=== PATIENT | female | born 1965 | race Caucasian/White ===

== ENCOUNTER 2016-06-25 07:34 | Emergency (ER) | payer MEDICARE, OTHER ==
[~2016-06-25] VITALS: Ht 152.4 cm; Wt 91.0 kg
[~2016-06-25 07:34] MED LIST: CELE200; IBUP-238; LORA-392; TOPR25TA2
[2016-06-25 07:36] VITALS: BP 172/84; PULSE 96; RESP 20; TEMP 98.8; O2SAT 96
--- NOTE | 2016-06-25 08:41 | PD ---
HPI Chief Complaint: Flank/Kidney Pain Time Seen by Provider: 08:23 Travel History International Travel<30 days: No Contact w/Intl Traveler<30days: No Traveled to known affect area: No History of Present Illness HPI 51yo F with PMH of IDDM, peripheral neuropathy presents to the ED with c/o bilateral lower back pain for 3 days. Also with nausea and vomiting today. States her neuropathy in bilateral legs are worst today and has pain with even light touch. Pt has wheelchair and uses it when her pain gets bad. Denies any fever, chest pain, sob, urinary complaints, fall or trauma. Back pain is constant, nonradiating, bilateral lower back and worst with movement. Pain in legs are different and feels like her usual neuropathy for which she took lyrica today. Pt is suppose to be on lantus and novolog and has not taken her insulin for 1 week because she ran out. Blood glucose is in the 400s in the ED. PFSH Past Medical History Cardiovascular Problems: Yes ([place]) Chemotherapy: Yes (RIGHT BREAST/ OVARIES [place]) Cerebrovascular Accident: Yes (3 CVA) Diabetes: Yes Patient Takes Glucophage: No ?: Not Past Surgical History Other Surgery: Yes (LUMPECTOMY R BREAST) Social History Alcohol Use: No Tobacco Use: Yes (PACK PER DAY ) Substance Use: No Allergies-Medications (Allergen,Severity, Reaction): Coded Allergies: Hydrocodone (Verified Allergy, Severe, tongue swelling, 10/01/06) Penicillin (Verified Allergy, Severe, HIVES, SWELLING, 10/01/06) Reported Meds & Prescriptions Reported Meds & Active Scripts Active Acetaminophen Extra Strength (Acetaminophen) 500 Mg Tab 500 Mg PO Q6H PRN Review of Systems Except as stated in HPI: all other systems reviewed are Neg Physical Exam Narrative GENERAL: 51yo F in moderate distress. SKIN: Focused skin assessment warm/dry. HEAD: Atraumatic. Normocephalic. EYES: Pupils equal and round. No scleral icterus. No injection or drainage. ENT: No nasal bleeding or discharge. Mucous membranes pink and moist. NECK: Trachea midline. No JVD. CARDIOVASCULAR: Regular rate and rhythm. No murmur appreciated. RESPIRATORY: No accessory muscle use. Clear to auscultation. Breath sounds equal bilaterally. GASTROINTESTINAL: Abdomen soft, non-tender, nondistended. No rebound tenderness or guarding. MUSCULOSKELETAL: +TTP bilateral lumbar spine. NEUROLOGICAL: Awake and alert. No obvious cranial nerve deficits. Motor grossly within normal limits. Normal speech. PSYCHIATRIC: Appropriate mood and affect; insight and judgment normal. Data Data Last Documented VS Vital Signs Date Time Temp Pulse Resp B/P Pulse Ox O2 Delivery O2 Flow Rate FiO2 06/25/16 14:26 64 22 125/87 95 Room Air 06/25/16 07:36 98.8 Orders Electrocardiogram (06/25/16 08:31) Diet Npo (06/25/16 Breakfast) Complete Blood Count With Diff (06/25/16 08:31) Comprehensive Metabolic Panel (06/25/16 08:31) Magnesium (Mg) (06/25/16 08:31) Phosphorus (Po4) (06/25/16 08:31) Beta Hydroxybutyrate (Acetone) (06/25/16 08:31) Sodium Chlor 0.9% 1000 Ml Inj (Ns 1000 M (06/25/16 08:31) Blood Gas Venous (Vbg) (06/25/16 08:31) Ketorolac Inj (Toradol Inj) (06/25/16 08:45) Morphine Inj (Morphine Inj) (06/25/16 10:15) Insulin Human Regular Inj (Novolin R Inj (06/25/16 10:15) Urinalysis - C+S If Indicated (06/25/16 10:19) Blood Glucose (06/25/16 11:18) Labs Laboratory Tests Test 06/25/16 06/25/16 06/25/16 08:40 08:45 13:05 White Blood Count 10.7 TH/MM3 Red Blood Count 5.72 MIL/MM3 Hemoglobin 16.9 GM/DL Hematocrit 48.8 % Mean Corpuscular Volume 85.2 FL Mean Corpuscular Hemoglobin 29.5 PG Mean Corpuscular Hemoglobin 34.6 % Concent Red Cell Distribution Width 13.3 % Platelet Count 161 TH/MM3 Mean Platelet Volume 9.1 FL Neutrophils (%) (Auto) 64.3 % Lymphocytes (%) (Auto) 29.1 % Monocytes (%) (Auto) 4.2 % Eosinophils (%) (Auto) 1.3 % Basophils (%) (Auto) 1.1 % Neutrophils # (Auto) 6.9 TH/MM3 Lymphocytes # (Auto) 3.1 TH/MM3 Monocytes # (Auto) 0.5 TH/MM3 Eosinophils # (Auto) 0.1 TH/MM3 Basophils # (Auto) 0.1 TH/MM3 CBC Comment DIFF FINAL Differential Comment Sodium Level 133 MEQ/L Potassium Level 4.1 MEQ/L Chloride Level 98 MEQ/L Carbon Dioxide Level 25.4 MEQ/L Anion Gap 10 MEQ/L Blood Urea Nitrogen 7 MG/DL Creatinine 0.80 MG/DL Estimat Glomerular Filtration 76 ML/MIN Rate Random Glucose 465 MG/DL Calcium Level 9.1 MG/DL Phosphorus Level 3.1 MG/DL Magnesium Level 1.9 MG/DL Total Bilirubin 0.8 MG/DL Aspartate Amino Transf 25 U/L (AST/SGOT) Alanine Aminotransferase 34 U/L (ALT/SGPT) Alkaline Phosphatase 132 U/L Total Protein 7.8 GM/DL Albumin 3.6 GM/DL B-Hydroxybutyrate 0.14 MMOL/L Blood Gas Puncture Site RA Blood Gas Patient Temperature 98.6 Venous Blood pH 7.37 Venous Blood Partial Pressure 48 mmHg CO2 Venous Blood Partial Pressure 35 mmHg O2 Venous Blood HCO3 27 mmol/L Venous Blood Oxygen Saturation 67 % Venous Blood Oxygen Content 14.6 Vol % Venous Blood Base Excess 2.4 mmol/L Oxygen Delivery Device RA Blood Gas Inspired Oxygen 21 % Urine Color YELLOW Urine Turbidity CLEAR Urine pH 5.5 Urine Specific [place] 1.018 Urine Protein NEG mg/dL Urine Glucose (UA) 1000 mg/dL Urine Ketones NEG mg/dL Urine Occult Blood NEG Urine Nitrite NEG Urine Bilirubin NEG Urine Urobilinogen LESS THAN 2.0 MG/DL Urine Leukocyte Esterase NEG Urine WBC LESS THAN 1 /hpf Urine Squamous Epithelial 2 /hpf Cells Urine Mucus FEW /lpf Microscopic Urinalysis Comment CULT NOT INDICATED MDM Medical Decision Making Medical Screen Exam Complete: Yes Emergency Medical Condition: Yes Interpretation(s) EKG: NSR 72bpm. Normal axis. TWI aVF, III. Q wave III. Laboratory Tests Test 06/25/16 06/25/16 06/25/16 08:40 08:45 13:05 White Blood Count 10.7 TH/MM3 (4.0-11.0) Red Blood Count 5.72 MIL/MM3 (4.00-5.30) Hemoglobin 16.9 GM/DL (11.6-15.3) Hematocrit 48.8 % (35.0-46.0) Mean Corpuscular Volume 85.2 FL (80.0-100.0) Mean Corpuscular Hemoglobin 29.5 PG (27.0-34.0) Mean Corpuscular Hemoglobin 34.6 % Concent (32.0-36.0) Red Cell Distribution Width 13.3 % (11.6-17.2) Platelet Count 161 TH/MM3 (150-450) Mean Platelet Volume 9.1 FL (7.0-11.0) Neutrophils (%) (Auto) 64.3 % (16.0-70.0) Lymphocytes (%) (Auto) 29.1 % (9.0-44.0) Monocytes (%) (Auto) 4.2 % (0.0-8.0) Eosinophils (%) (Auto) 1.3 % (0.0-4.0) Basophils (%) (Auto) 1.1 % (0.0-2.0) Neutrophils # (Auto) 6.9 TH/MM3 (1.8-7.7) Lymphocytes # (Auto) 3.1 TH/MM3 (1.0-4.8) Monocytes # (Auto) 0.5 TH/MM3 (0-0.9) Eosinophils # (Auto) 0.1 TH/MM3 (0-0.4) Basophils # (Auto) 0.1 TH/MM3 (0-0.2) CBC Comment DIFF FINAL Differential Comment Sodium Level 133 MEQ/L (136-145) Potassium Level 4.1 MEQ/L (3.5-5.1) Chloride Level 98 MEQ/L (98-107) Carbon Dioxide Level 25.4 MEQ/L (21.0-32.0) Anion Gap 10 MEQ/L (5-15) Blood Urea Nitrogen 7 MG/DL (7-18) Creatinine 0.80 MG/DL (0.50-1.00) Estimat Glomerular Filtration 76 ML/MIN (>89) Rate Random Glucose 465 MG/DL (74-106) Calcium Level 9.1 MG/DL (8.5-10.1) Phosphorus Level 3.1 MG/DL (2.5-4.9) Magnesium Level 1.9 MG/DL (1.5-2.5) Total Bilirubin 0.8 MG/DL (0.2-1.0) Aspartate Amino Transf 25 U/L (15-37) (AST/SGOT) Alanine Aminotransferase 34 U/L (10-53) (ALT/SGPT) Alkaline Phosphatase 132 U/L (45-117) Total Protein 7.8 GM/DL (6.4-8.2) Albumin 3.6 GM/DL (3.4-5.0) B-Hydroxybutyrate 0.14 MMOL/L (0.00-0.39) Blood Gas Puncture Site RA Blood Gas Patient Temperature 98.6 Venous Blood pH 7.37 (7.360-7.400) Venous Blood Partial Pressure 48 mmHg (44-48) CO2 Venous Blood Partial Pressure 35 mmHg (35-40) O2 Venous Blood HCO3 27 mmol/L (22-26) Venous Blood Oxygen Saturation 67 % (70-76) Venous Blood Oxygen Content 14.6 Vol % (9.0-17.0) Venous Blood Base Excess 2.4 mmol/L (-2-2) Oxygen Delivery Device RA Blood Gas Inspired Oxygen 21 % Urine Color YELLOW (YELLW/STRAW) Urine Turbidity CLEAR (CLEAR) Urine pH 5.5 (5.0-8.5) Urine Specific [place] 1.018 (1.002-1.035) Urine Protein NEG mg/dL (NEG-TRACE) Urine Glucose (UA) 1000 mg/dL (NEG) Urine Ketones NEG mg/dL (NEG) Urine Occult Blood NEG (NEG) Urine Nitrite NEG (NEG) Urine Bilirubin NEG (NEG) Urine Urobilinogen LESS THAN 2.0 MG/DL (LESS THAN 2.0) Urine Leukocyte Esterase NEG (NEG) Urine WBC LESS THAN 1 /hpf (0-5) Urine Squamous Epithelial 2 /hpf (0-5) Cells Urine Mucus FEW /lpf (OCC) Microscopic Urinalysis Comment CULT NOT INDICATED Differential Diagnosis DKA vs. musculoskeletal back pain vs. chronic back pain vs. nephrolithiasis Narrative Course 51yo F with lower back pain that is consistent with musculoskeletal pain. Pt has no urinary complaints, new neurologic deficits or trauma. Pt has not been taking her insulin because she ran out. She has medicaid and needs to follow up with a primary care physician. Labs reviewed, no leukocytosis. H/H elevated likely dehydration. Pt given NS IVF x2. Glucose is elevated at 465. No increased anion gap. CO2 normal pH normal at 7.37. b-hyoxybutyrate not elevated. Pt is not in DKA but has uncontrolled diabetes secondary to noncompliance with medication. Pt given toradol for pain but did not help so morphine 4mg IV given. Pt reevaluated after morphine and pain has resolved. UA showed no leukocyte or nitrite. Pt given regular insulin 10 units. Recheck glucose was 218. Pt states she takes lantus 15 units so will give her a prescription for it. Pt has insurance so instructed pt to follow up with primary care physician tomorrow. Instructed pt to return to the ED if symptoms worsen. Diagnosis Primary Impression: Hyperglycemia Additional Impression: Musculoskeletal pain Patient Instructions: General Instructions Departure Forms: Tests/Procedures Additional Instructions: Please follow up with PMD tomorrow for your diabetes. Please return to the ED if symptoms worsen. Med/Other Pt SpecificInfo: Prescription(s) given, No Change to Meds Scripts Insulin Glargine Inj (Lantus Inj)1,000 Unit/10 Ml Vial15 Units SQ HS 14 Days Ref 0 Prov:Jenny Greenwood DO 06/25/16 Acetaminophen (Acetaminophen Extra Strength)500 Mg Tto864 Mg PO Q6H PRN (PAIN SCALE 1 TO 4) #20 TAB Ref 0 Prov:Jenny Greenwood DO 06/25/16 Disposition: 01 DISCHARGE HOME Condition: Stable Jenny Greenwood DO Jun 25, 2016 08:41
[2016-06-25] MEDS: SODIUM CHLOR 0.9% 1000 ML INJ 1,000 ML IV SCH ×2 (08:44→10:46)
[2016-06-25] MEDS ORDERED: KETOROLAC TROMETHAMINE 30 MG/ML (IVP) VIAL IV PUSH ONE (08:45)
[2016-06-25 08:53] LABS: BLOOD GAS VENOUS BASE EXCESS 2.4 mmol/L (-2-2); BLOOD GAS VENOUS HCO3 27 mmol/L (22-26); BLOOD GAS VENOUS O2 CONTENT 14.6 Vol % (9.0-17.0); BLOOD GAS VENOUS O2 HGB SAT 67 % (70-76); BLOOD GAS VENOUS PCO2 48 mmHg (44-48); BLOOD GAS VENOUS PO2 35 mmHg (35-40); BLOOD GAS VENOUS pH 7.37 (7.360-7.400); TEMP CORR TO 98.6
[2016-06-25 08:54] LABS: CRITICAL VALUE NO; DRAW SITE RA; FIO2 21 %; OXYGEN DEVICE RA; STAT YES
[2016-06-25 09:11] LABS: AUTOMATED NEUTROPHIL # 6.9 TH/MM3 (1.8-7.7); BASOPHIL # 0.1 TH/MM3 (0-0.2); BASOPHIL % 1.1 % (0.0-2.0); EOSINOPHIL # 0.1 TH/MM3 (0-0.4); EOSINOPHIL % 1.3 % (0.0-4.0); HEMATOCRIT 48.8 % (35.0-46.0); HEMO FLAGS DIFF FINAL; LYMPH % 29.1 % (9.0-44.0); LYMPHOCYTE # 3.1 TH/MM3 (1.0-4.8); MEAN CELL VOLUME 85.2 FL (80.0-100.0); MEAN CORPUSCULAR HEMOGLOBIN 29.5 PG (27.0-34.0); MEAN CORPUSCULAR HGB CONC 34.6 % (32.0-36.0); MONO % 4.2 % (0.0-8.0); NEUT % 64.3 % (16.0-70.0); PLATELET COUNT 161 TH/MM3 (150-450); RED BLOOD COUNT 5.72 MIL/MM3 (4.00-5.30); RED CELL DISTRIBUTION WIDTH 13.3 % (11.6-17.2); WHITE BLOOD COUNT 10.7 TH/MM3 (4.0-11.0)
[2016-06-25 09:34] LABS: ALKALINE PHOSPHATASE 132 U/L (45-117); ALT (GPT) 34 U/L (10-53); ANION GAP 10 MEQ/L (5-15); AST (GOT) 25 U/L (15-37); BETA-HYDROXYBUTYRATE 0.14 MMOL/L (0.00-0.39); BICARBONATE 25.4 MEQ/L (21.0-32.0); BLOOD UREA NITROGEN 7 MG/DL (7-18); CHLORIDE 98 MEQ/L (98-107); GLOMERULAR FILTRATION RATE 76 ML/MIN (>89); MAGNESIUM 1.9 MG/DL (1.5-2.5); POTASSIUM 4.1 MEQ/L (3.5-5.1); SODIUM (NA) 133 MEQ/L (136-145); TOTAL BILIRUBIN ADULT 0.8 MG/DL (0.2-1.0)
[2016-06-25] MEDS ORDERED: MORPHINE SULFATE 4 MG/ML INJ IV PUSH ONE (10:15)
[2016-06-25] MEDS ORDERED: INSULIN HUMAN REGULAR 1,000 UNITS/10 ML VIAL SQ ONE (10:15)
[2016-06-25 13:32] LABS: BLOOD, URINE NEG (NEG); GLUCOSE,URINE 1000 mg/dL (NEG); KETONE, URINE NEG (NEG); MUCUS URINE FEW /lpf (OCC); NITRITE,URINE NEG (NEG); PH, URINE 5.5 (5.0-8.5); SQUAMOUS EPITHELIAL CELL URINE 2 /hpf (0-5); URINE COLOR YELLOW (YELLW/STRAW)
[2016-06-25 13:44] LABS: COMMENT (UR) CULT NOT INDICATED; CULTURE IF INDICATED CULT NOT INDICATED
[2016-06-25 14:26] VITALS: BP 125/87; PULSE 64; RESP 22; O2SAT 95
[2016-06-25] MEDS ORDERED: ACET500T36 PO (14:45)
[2016-06-25] MEDS ORDERED: LANTUS2P SQ (14:51)
--- NOTE | 2016-06-25 22:03 | EKG ---
Date Performed: 06/25/2016 Time Performed: 08:35:22 PTAGE: 51 years EKG: Sinus rhythm WITH SINUS ARRHYTHMIA Nonspecific ST and T wave abnormalities PREVIOUS TRACING : 09/24/2006 11.55 Compared to prior tracing no significant change DOCTOR: Iván Sow Interpretating Date/Time 06/25/2016 22:01:11
== END 2016-06-25 15:41 | disposition home or self-care (01) ==
LOC: NEPE 07:34
DX: E11.65 Type 2 diabetes mellitus with hyperglycemia (principal); M79.1 Myalgia; F17.210 Nicotine dependence, cigarettes, uncomplicated; Z79.4 Long term (current) use of insulin; Z91.14 Patient's other noncompliance with medication regimen
CPT/HCPCS: 80053; 81001; 82010; 82805; 83735; 84100; 85025; 93005; 96361; 96372; 96374; 96375; 99283; J1815; J1885; J2270; J7030

== ENCOUNTER 2016-07-11 15:50 | Inpatient (IN) | payer MEDICARE, OTHER ==
[~2016-07-11 15:50] MED LIST changes: +ACET500T36 PO; -CELE200; -IBUP-238; +LANTUS2P SQ; -LORA-392; -TOPR25TA2
[2016-07-11] MEDS ORDERED: SODIUM CHLOR 0.9% 1000 ML INJ 1,000 ML IV ONE (16:03)
--- NOTE | 2016-07-11 16:19 | RADRPT ---
EXAM DATE/TIME: 07/11/2016 16:09 [facility] COMPARISON: No previous studies available for comparison. INDICATIONS : Right side weakness, slurred speech. RADIATION DOSE: 43.81 CTDIvol (mGy) MEDICAL HISTORY : Cerebrovascular disease. SURGICAL HISTORY : Unable to obtain ENCOUNTER: Initial ACUITY: 1 day PAIN SCALE: 4/10 LOCATION: cranial TECHNIQUE: Multiple contiguous axial images were obtained of the head. Using automated exposure control and adj ustment of the mA and/or kV according to patient size, radiation dose was kept as low as reasonably a chievable to obtain optimal diagnostic quality images. FINDINGS: CEREBRUM: The ventricles are normal. No evidence of midline shift, mass lesion, hemorrhage or acute infarction . No extra-axial fluid collections are seen. POSTERIOR FOSSA: The cerebellum and brainstem demonstrate no acute finding. The 4th ventricle is midline. The cerebe llopontine angle is unremarkable. EXTRACRANIAL: Visualized sinuses are clear. SKULL: The calvaria is intact. No evidence of skull fracture. CONCLUSION: Negative noncontrast head CT. No acute finding is identified. These findings were telephoned to Dr. Arora at 4: 15 PM on 07/11/2016. Jesse Baer MD on July 11, 2016 at 16:14 Board Certified Radiologist. This report was verified electronically.
[2016-07-11 16:22] LABS: I-STAT POTASSIUM 4.1 MMOL/L (3.5-4.9); I-STAT SODIUM 138 MMOL/L (138-146)
[2016-07-11 16:23] LABS: AUTOMATED NEUTROPHIL # 5.1 TH/MM3 (1.8-7.7); BASOPHIL # 0.1 TH/MM3 (0-0.2); BASOPHIL % 0.9 % (0.0-2.0); EOSINOPHIL # 0.2 TH/MM3 (0-0.4); EOSINOPHIL % 1.5 % (0.0-4.0); HEMATOCRIT 45.9 % (35.0-46.0); HEMO FLAGS DIFF FINAL; LYMPH % 44.8 % (9.0-44.0); LYMPHOCYTE # 4.7 TH/MM3 (1.0-4.8); MEAN CELL VOLUME 83.9 FL (80.0-100.0); MEAN CORPUSCULAR HEMOGLOBIN 29.4 PG (27.0-34.0); MONO % 4.4 % (0.0-8.0); NEUT % 48.4 % (16.0-70.0); PLATELET COUNT 156 TH/MM3 (150-450); RED BLOOD COUNT 5.47 MIL/MM3 (4.00-5.30); RED CELL DISTRIBUTION WIDTH 13.1 % (11.6-17.2); WHITE BLOOD COUNT 10.5 TH/MM3 (4.0-11.0)
--- NOTE | 2016-07-11 16:30 | RADRPT ---
EXAM DATE/TIME: 07/11/2016 16:09 [facility] COMPARISON: No previous studies available for comparison. INDICATIONS : Right side weakness,slurred speech IV CONTRAST: 73 cc Omnipaque 350 (iohexol) IV RADIATION DOSE: 28.29 CTDIvol (mGy) MEDICAL HISTORY : Cerebrovascular disease. SURGICAL HISTORY : Unable to obtain ENCOUNTER: Initial ACUITY: 1 day PAIN SCALE: 3/10 LOCATION: CTA head TECHNIQUE: Volumetric scanning was performed using a multi-row detector CT scanner. The data was post processed with a variety of visualization algorithms including full volume maximum intensity projection, multi -planar sliding thin slab reformation, curved planar reformation, and surface rendering techniques. Using automated exposure control and adjustment of the mA and/or kV according to patient size, radiat ion dose was kept as low as reasonably achievable to obtain optimal diagnostic quality images. FINDINGS: Both distal internal carotid arteries are widely patent. The left vertebral artery is hypoplastic. The right vertebral is the dominant blood supply to the bas ilar and is a sizable vessel. It is widely patent. The basilar is widely patent. There is excellent visualization of the major intracranial arteries out to the second-order branch ve ssels. There is no evidence for aneurysm, vessel truncation or stenosis, and no evidence for vascula r malformation. CONCLUSION: 1. Negative examination. Goldy Cavazos MD on July 11, 2016 at 16:27 Board Certified Radiologist. This report was verified electronically.
[2016-07-11 16:34] LABS: PROTHROMBIN TIME - PATIENT 11.1 SEC (9.8-11.6)
[2016-07-11 16:43] LABS: BETA HCG QUANT LESS THAN 1 MIU/ML (0-5)
[2016-07-11 16:47] LABS: BLOOD GAS BASE EXCESS 1.8 mmol/L (-2-2); BLOOD GAS CARBOXYHEMOGLOBIN 6.1 % (0-4); BLOOD GAS HCO3 25 mmol/L (22-26); BLOOD GAS METHEMOGLOBIN 0.4 % (0-2); BLOOD GAS O2 HGB SATURATION 91 % (90-100); BLOOD GAS OXYGEN CONTENT 18.7 Vol % (12.0-20.0); BLOOD GAS PCO2 36 mmHg (38-42); BLOOD GAS PO2 76 mmHG (61-120); BLOOD GAS TOTAL HGB 14.6 G/DL (12.0-16.0); TEMP CORR TO 98.6
[2016-07-11 16:49] LABS: CRITICAL VALUE YES; DRAW SITE LT BRACHIAL; NUMBER OF ARTERIAL PUNCTURES 2; OXYGEN DEVICE RA
--- NOTE | 2016-07-11 17:00 | PD ---
HPI Chief Complaint: stroke alert Time Seen by Provider: 16:03 Travel History International Travel<30 days: No Contact w/Intl Traveler<30days: No Traveled to known affect area: No History of Present Illness HPI This is a 51-year-old female with history of diabetes mellitus, COPD, previous CVA, presents today with altered mental status and right sided weakness. The patient was dropped off at the triage area by family members. Reportedly, the patient was last seen normal at 7 AM this morning. Daughter states that when she left the house she was awake and alert and appropriate. There is report that she was spoken to at between 1 and 1:30 and that time she was answering questions appropriate. She will presents to the ED with dysarthria and right upper and right lower extremity weakness. She reports burning in her head. There are no other reported symptoms at this time. The patient is able to answer questions however she does have stuttering and slight slurred speech. PFSH Past Medical History Cardiovascular Problems: Yes ([place]) Chemotherapy: Yes (RIGHT BREAST/ OVARIES CA) Cerebrovascular Accident: Yes (3 CVA) Diabetes: Yes ?: Not Past Surgical History Other Surgery: Yes (LUMPECTOMY R BREAST) Social History Alcohol Use: No Tobacco Use: Yes (PACK PER DAY ) Substance Use: No Allergies-Medications (Allergen,Severity, Reaction): Coded Allergies: Hydrocodone (Verified Allergy, Severe, tongue swelling, 10/01/06) Penicillin (Verified Allergy, Severe, HIVES, SWELLING, 10/01/06) Reported Meds & Prescriptions Reported Meds & Active Scripts Active Lantus Inj (Insulin Glargine) 1,000 Unit/10 Ml Vial 15 Units SQ HS 14 Days Acetaminophen Extra Strength (Acetaminophen) 500 Mg Tab 500 Mg PO Q6H PRN Review of Systems ROS Limitations: Clinical Condition Except as stated in HPI: all other systems reviewed are Neg General / Constitutional: No: Fever, Chills HENT: Positive: Headaches, No: Neck Pain (burning sensation in her head) Cardiovascular: No: Chest Pain or Discomfort, Palpitations Respiratory: No: Cough, Shortness of Breath Gastrointestinal: No: Nausea, Vomiting Neurologic: Positive: Weakness (right upper and right lower.), Headache, Slurred Speech, No: Incontinence Physical Exam Narrative GENERAL: Well-developed well-nourished female who appears lethargic and weak. SKIN: Focused skin assessment warm/dry. HEAD: Atraumatic. Normocephalic. EYES: Extraocular muscles appear intact. No scleral icterus. No injection or drainage. ENT: No nasal bleeding or discharge. Mucous membranes pink and moist. NECK: Trachea midline. No JVD. CARDIOVASCULAR: Regular rate and rhythm. No murmur appreciated. RESPIRATORY: No accessory muscle use. Clear to auscultation. Breath sounds equal bilaterally. GASTROINTESTINAL: Abdomen soft, non-tender, nondistended. Hepatic and splenic margins not palpable. MUSCULOSKELETAL: No obvious deformities. No clubbing. No cyanosis. No edema. NEUROLOGICAL: Awake and slurred speech. The patient has weakness 1-2 out of 5 on the right upper and right lower extremity. She reports decreased sensation to her right upper and right lower extremity. Data Data Last Documented VS Vital Signs Date Time Temp Pulse Resp B/P Pulse Ox O2 Delivery O2 Flow Rate FiO2 07/11/16 17:36 96 Nasal Cannula 21 Orders Diet Npo (07/11/16 Dinner) Activity Bed Rest (07/11/16 ) Electrocardiogram (07/11/16 ) I-Stat Creatinine (07/11/16 16:03) I-Stat Profile (07/11/16 16:03) Prothrombin Time / Inr (Pt) (07/11/16 16:03) Act Partial Throm Time (Ptt) (07/11/16 16:03) Complete Blood Count With Diff (07/11/16 16:03) Fibrinogen (07/11/16 16:03) Creatine Kinase (Cpk) (07/11/16 16:03) Troponin I (07/11/16 16:03) Ua Includes Microscopic (07/11/16 16:03) Drug Screen, Random Urine (07/11/16 16:03) Type And Screen (07/11/16 16:03) Ct Brain W/O Iv Contrast(Rout) (07/11/16 ) Cta Brain W Iv Contrast W 3d (07/11/16 16:03) Cta Neck W Iv Contrast W 3d (07/11/16 16:03) Beta Hcg (Quant/Titer) (07/11/16 16:03) Consult Neurology (07/11/16 ) Blood Glucose (07/11/16 16:03) Ecg Monitoring (07/11/16 16:03) Neuro Checks Q2HX12,Q4H (07/11/16 16:03) Nursing Bedside Swallow Assess .ONCE (07/11/16 16:) Iv Access Insert/Monitor (07/11/16 16:) NPO (07/11/16 16:) Oximetry (07/11/16 16:) Oxygen Administration (07/11/16 16:) Sodium Chlor 0.9% 1000 Ml Inj (Ns 1000 M (07/11/16 16:) Resp Oxygen John C Titrat 1-4 L (07/11/16 16:) Cath For Specimen (07/11/16 16:) Arterial Blood Gas (Abg) (07/11/16:) Westergren Sedimentation Rate (07/11/16) Rapid Plasma Regin (Rpr) W Ttr (07/11/16:) Ashley Screen (07/11/16:) Thyroid Stimulating Hormone (07/11/16) Free Thyroxine (T4) (07/11/16) Vitamin B1 (Thiamine) (07/11/16:) Vitamin B12 (07/11/16:) Urinalysis - C+S If Indicated (07/11/16:) Methylmalonic Acid (Mma) (07/11/16) Ast (Sgot) (07/11/16:) Alt (Sgpt) (07/11/16:) Mri Brain W&W/O Contrast (07/11/16:) Eeg Study (07/11/16) Echo 2d Comp W/Dopp(Routine) (07/11/16:) Holter Monitor Recording (07/11/16:) Measurement Superintendent / Telemetry MEHUL.Q8H (07/11/16:) Sodium Chlor 0.9% 1000 Ml Inj (Ns 1000 M (07/11/16 18:00) Lipid Profile (07/11/16:) ^ Other Nursing Orders (07/11/16:) ^ Other Nursing Orders (07/11/16:) Consult Pt Eval & Treat (07/11/16:) Scd&Teds Bilateral/Knee High MEHUL.QSHIFT (07/11/16 17:22) ^ Call Pharmacy (07/11/16:22) Nih Stroke Scale - Nihss .ONCE (07/11/16:) Urinary Catheter Management MEHUL.Q8H (07/11/16:22) Urinary Catheter Insert/Apply (07/11/16:22) Anticoagulant Alert (07/11/16:) ^ Post Infusion Restrictions (07/11/16:) ^ Medication Alert (07/11/16) Vital Signs (Adult) .As directed (07/11/16:) Notify Dr: Blood Pressure (07/11/16:) ^ Medication Alert (07/11/16:) Alteplase Bolus (Activase Bolus) (07/11/16 17:30) Alteplase Drip (Activase Drip) (07/11/16 17:30) Sodium Chloride 0.9% Inj (Ns Inj) (07/11/16 17:30) Misc Nursing Information (07/11/16 17:30) Resp Oxygen John C Titrat 1-4 L (07/11/16 ) Ct Brain W/O Iv Contrast(Rout) (07/12/16 ) Iohexol 350 Inj (Omnipaque 350 Inj) (07/11/16 17:32) Admit Order (Ed Use Only) (07/11/16 17:35) Labs Laboratory Tests Test 07/11/16 07/11/16 15:58 16:33 White Blood Count 10.5 TH/MM3 Red Blood Count 5.47 MIL/MM3 Hemoglobin 16.1 GM/DL Bedside Hemoglobin 15.3 G/DL Hematocrit 45.9 % Bedside Hematocrit 45.0 % Mean Corpuscular Volume 83.9 FL Mean Corpuscular Hemoglobin 29.4 PG Mean Corpuscular Hemoglobin 35.0 % Concent Red Cell Distribution Width 13.1 % Platelet Count 156 TH/MM3 Mean Platelet Volume 8.8 FL Neutrophils (%) (Auto) 48.4 % Lymphocytes (%) (Auto) 44.8 % Monocytes (%) (Auto) 4.4 % Eosinophils (%) (Auto) 1.5 % Basophils (%) (Auto) 0.9 % Neutrophils # (Auto) 5.1 TH/MM3 Lymphocytes # (Auto) 4.7 TH/MM3 Monocytes # (Auto) 0.5 TH/MM3 Eosinophils # (Auto) 0.2 TH/MM3 Basophils # (Auto) 0.1 TH/MM3 CBC Comment DIFF FINAL Differential Comment Prothrombin Time 11.1 SEC Prothromb Time International 1.0 RATIO Ratio Activated Partial 26.0 SEC Thromboplast Time Fibrinogen 237 mg/dL Bedside Sodium 138 MMOL/L Bedside Potassium 4.1 MMOL/L Bedside Chloride 100 MMOL/L Bedside Blood Urea Nitrogen 6 MG/DL Bedside Creatinine 0.5 MG/DL Bedside Glucose 414 MG/DL Aspartate Amino Transf 13 U/L (AST/SGOT) Alanine Aminotransferase 28 U/L (ALT/SGPT) Total Creatine Kinase 42 U/L Troponin I LESS THAN 0.02 NG/ML Triglycerides Level 260 MG/DL Cholesterol Level 148 MG/DL LDL Cholesterol 64 MG/DL HDL Cholesterol 31.6 MG/DL Cholesterol/HDL Ratio 4.68 RATIO Vitamin B12 Level 371 PG/ML Free Thyroxine 1.63 NG/DL Thyroid Stimulating Hormone 1.290 uIU/ML 3rd Gen Human Chorionic Gonadotropin, LESS THAN 1 Quant MIU/ML Blood Type O POSITIVE Antibody Screen NEGATIVE Blood Bank Comment Blood Gas Puncture Site LT BRACHIAL Blood Gas Patient Temperature 98.6 Blood Gas HCO3 25 mmol/L Blood Gas Base Excess 1.8 mmol/L Blood Gas Oxygen Saturation 91 % Arterial Blood pH 7.46 Arterial Blood Partial 36 mmHg Pressure CO2 Arterial Blood Partial 76 mmHG Pressure O2 Arterial Blood Oxygen Content 18.7 Vol % Arterial Blood 6.1 % Carboxyhemoglobin Arterial Blood Methemoglobin 0.4 % Blood Gas Hemoglobin 14.6 G/DL Oxygen Delivery Device RA MDM Medical Decision Making Medical Screen Exam Complete: Yes Emergency Medical Condition: Yes Interpretation(s) Stroke alert called when patient arrived. Patient had a stroke scale of 20. This was initiated within 5 minutes of patient's arrival time. Differential Diagnosis Acute embolic CVA versus hemorrhagic CVA versus hypercapnia/hypercarbia versus metabolic derangement Narrative Course The 51-year-old female comes in as a stroke alert. Patient was last reported normal at 1:30. She arrived shortly before the 3 hour window. The patient's CT brain was negative for acute process. Initially the patient had more movement than she did when she returned from CAT scan. Upon discussion with Dr. Cueto, on-call neurologist, the patient was made a candidate for TPA. The risks and benefits were discussed with the patient. She did give informed consent. She understood that there was a risk of bleeding including . She 'll be admitted to the intensive care unit. There is a call out to the clinical education specialist. Critical Care Narrative Aggregate critical care time was 60 minutes. Time to perform other separately billable procedures was not included in the critical care time. My time did not include minutes spent treating any other patients simultaneously or on activities that did not directly contribute to the patient's treatment. The services I provided to this patient were to treat and/or prevent clinically significant deterioration that could result in: I provided critical care services requiring my management, as noted below: Chart data review, documentation time, medication orders and management, vital sign assessments/reviewing monitor data, ordering and reviewing lab tests, ordering and interpreting/reviewing x-rays and diagnostic studies, care of the patient and discussion of the patient with the admitting physicians. Physician Communication Physician Communication Case discussed with Dr. Christianson. Initially we are awaiting the CT scan and a blood gas. Blood gas shows no evidence of hypercarbia. There is a carboxyhemoglobin of 6. After patient returned back from CT scan, the patient had worsening deficits. She had a stroke scale of 20. Dr. Christianson agrees that at this point while she is outside the window, he feels that she is a candidate for TPA. Diagnosis Primary Impression: Acute cerebrovascular accident Additional Impressions: Hyperglycemia COPD (chronic obstructive pulmonary disease) Asif Arora MD July 11, 2016 17:00
[2016-07-11 17:02] LABS: CREATINE KINASE 42 U/L (26-192)
[2016-07-11] MEDS ORDERED: SODIUM CHLORIDE 0.9% 50 ML BAG IVF ONE (17:30)
[2016-07-11] MEDS ORDERED: ALTEPLASE DRIP IV ONE (17:30)
[2016-07-11] MEDS ORDERED: ALTEPLASE BOLUS 9 MG/9 ML SYR IV ONE (17:30)
[2016-07-11] MEDS ORDERED: MISCELLANEOUS NURSING INFORMATION XX PRN (17:30)
[2016-07-11] MEDS ORDERED: IOHEXOL 350 MG/ML 10 ML VIAL (for RAD DIAG) IV ONE (17:32)
[2016-07-11 17:36] VITALS: O2SAT 96
--- NOTE | 2016-07-11 17:42 | RADRPT ---
EXAM DATE/TIME: 07/11/2016 16:09 [facility] COMPARISON: No previous studies available for comparison. INDICATIONS : Right side weakness,slurred speech. IV CONTRAST: 73 cc Omnipaque 350 (iohexol) IV ; Cumulative dose for multiple exams. RADIATION DOSE: 28.29 CTDIvol (mGy) ; Combined studies MEDICAL HISTORY : Cerebrovascular disease. SURGICAL HISTORY : Unable to obtain ENCOUNTER: Initial ACUITY: 1 day PAIN SCALE: 3/10 LOCATION: CTA neck Elevated flow velocities and ICA/CCA ratios have been found to correlate with increased degrees of vessel stenosis, calculated as percentage of diameter relative to a normal segment of distal ICA/CCA. TECHNIQUE: Volumetric scanning was performed using a multirow detector CT scanner. The data was post processed with a variety of visualization algorithms including full-volume maximum intensity projection, multip lanar sliding thin-slab reformation, curved-planar reformation, and surface-rendering techniques. Us ing automated exposure control and adjustment of the mA and/or kV according to patient size, radiatio n dose was kept as low as reasonably achievable to obtain optimal diagnostic quality images. FINDINGS: AORTIC ARCH: There is a three-vessel origin of the great vessels from the aorta. No evidence of ostial narrowing. RIGHT CAROTID: The common carotid artery is intact. The carotid bulb has a normal configuration without ulceration o r narrowing. The internal carotid artery lumen is smooth without stenosis. The external carotid jenae ry is intact. LEFT CAROTID: The common carotid artery is intact. The carotid bulb has a normal configuration without ulceration or narrowing. The internal carotid artery lumen is smooth without stenosis. The external carotid ar carito is intact. VERTEBRALS: The vertebral arteries are patent bilaterally, right side dominant. No stenotic lesions are seen. CONCLUSION: No evidence of carotid stenosis Jesse Stanley MD on July 11, 2016 at 17:38 Board Certified Radiologist. This report was verified electronically.
[2016-07-11] MEDS ORDERED: INSULIN HUMAN REGULAR 1,000 UNITS/10 ML VIAL IV PUSH ONE (17:45)
--- NOTE | 2016-07-11 17:55 | MB ---
cc: MELY VIGIL DATE OF CONSULTATION: 07/11/2016. REASON FOR CONSULTATION: HISTORY OF PRESENT ILLNESS: 51-year-old woman with a history of hypertension, kpc-[id number]-nwvefvgmg diabetes mellitus, a stroke in the past with left-sided weakness that fully resolved. She does not take an aspirin or any blood thinners. At about 1:30 today, she became weak on the right side. She came in to the emergency room initially called a stroke alert but she could keep both of her arms off the bed, seemed to have some difficulty talking or dysarthric speech by the ER doctor. He thought she was obtunded or very lethargic. It did not sound initially like a stroke. She went to CT and when she came back she seemed to be more weak on the right. She says her head is burning. REVIEW OF SYSTEMS: She denies any history of hypercholesterolemia, known atrial fibrillation, CABG, stents, angioplasty, renal, hepatic, or pulmonary disease, thyroid disease, lupus, ulcer, cancer, seizure or stroke. SOCIAL HISTORY: She is a smoker, not a drinker and lives with her daughter. FAMILY HISTORY: Positive for cancer, positive for seizures. Positive for stroke. She tells me she had breast cancer seven years ago, ovarian cancer in the past. Denies any . ALLERGIES: HYDROCODONE OR PENICILLIN. MEDICATIONS AT HOME: Just on insulin. PHYSICAL EXAMINATION: GENERAL: She is moderately obese. VITAL SIGNS: On exam, sinus rhythm. She is 120/70. NECK: There are no carotid bruits. HEART: Regular rhythm. I do not detect a murmur. NEUROLOGICAL EXAMINATION: Pupils are equal. She says she has glaucoma so cannot see peripherally with either eye but she can count fingers centrally. Face is symmetric. Tongue deviated way over to the right but she could move it around to the left and the right for me. Face moves symmetrically. She said she could not feel pin prick on either side of her face or the top of her head. She can warp picker the left arm better than the right but does not hold the left arm all the way off the bed either. She can wiggle her left fingers better than the right. On the left, she does not give great effort. I would probably put her at about a 4+ and on the right a 4- to 3+. The left knee she can get up off the bed well. The right knee she can barely get up off the bed. She can do a straight leg raise on the left but not on the right. Toes are downgoing bilaterally. DTRs are absent throughout. Pin prick she said she could not feel anywhere on either side of her body for the most part but felt it a little bit more on the left than the right. She stutters somewhat. She can name my glasses. She could do 10, -7. Difficulty with repetition. She followed commands overall well. She tends to be a little tearful. She denies any depression. She feels like her symptoms are real. LABORATORY DATA: Initially her sugar was 450 and it came down to 387. CBC today is normal. Urinalysis a month ago was negative. Coags are normal. Basic metabolic profile normal. She has had a high glucose a month ago it was 465 and it was 414 initially when she came in here. CPK is normal. Troponin is negative. HCG is negative. ABG was normal. IMAGING STUDIES: CTA head is negative. CTA of the brain was also negative. On review of the films, the CT does appear to be normal. CTA of the neck by the radiologist is normal. CTA of head and [place]: The basilar artery looks normal. She has a right vertebral-dominant. The MCA looks fine. No major artery occlusion. IMPRESSION: It looks like she has had a stroke. Some of her symptoms are a little atypical in that she cannot keep the left arm up very well either and that she stutters but she feels that these symptoms are real and certainly weak on the right. As such, we plan on giving her tPA. Current NIH stroke scale, I would put her at a 6. MD MARIA DEL ROSARIO Sierra/JULIETA /5:17 PM /5:41 PM
[2016-07-11] MEDS ORDERED: SODIUM CHLOR 0.9% 1000 ML INJ 1,000 ML IV SCH (18:00)
[2016-07-11 18:41] LABS: FREE T4 1.63 NG/DL (0.76-1.46); HDL CHOLESTEROL 31.6 MG/DL (40.0-60.0)
[2016-07-11] MEDS ORDERED: ACETAMINOPHEN 325 MG TAB PO ONE (19:15)
[2016-07-11 19:20] VITALS: O2SAT 97
[2016-07-11] MEDS ORDERED: METH5TAB PO (20:24)
[2016-07-11] MEDS ORDERED: METOCLOPRAMIDE HCL 10 MG/2 ML VIAL IV PRN (21:30)
[2016-07-11] MEDS ORDERED: MISCELLANEOUS NURSING INFORMATION XX SCH (21:30)
[2016-07-11] MEDS ORDERED: SODIUM CHLORIDE 0.9% FLUSH 10 ML FLUSH PRN (21:30)
[2016-07-11] MEDS ORDERED: RESP: ALBUTEROL 2.5 MG/IPRATROPIUM 0.5 MG NEB (PRN) INH (21:30)
[2016-07-11] MEDS ORDERED: ACETAMINOPHEN 325 MG TAB PO PRN (21:30)
[2016-07-11] MEDS ORDERED: CHLORHEXIDINE GLUCONATE 2 % 1 PACK (2 CLOTHS) TOP PRN (21:30)
[2016-07-11] MEDS ORDERED: ONDANSETRON HCL 4 MG/2 ML VIAL IV PRN (21:30)
[2016-07-11 22:00] VITALS: BP_SYST 134; BP_SYST 148; BP_DIAS 88; BP_DIAS 91; PULSE 60; RESP 18; TEMP 98.1; O2SAT 97
[2016-07-11] MEDS ORDERED: PILL SPLITTER OTHER PRN (22:00)
--- NOTE | 2016-07-11 22:01 | HHI.HP ---
HPI Service Critical Care Medicine Primary Care Physician No Primary Care Physician Admission Diagnosis Acute CVA, diabetes mellitus, COPD Diagnosis: Travel History International Travel<30 Days: No Contact w/Intl Traveler <30 Da: No Traveled to Known Affected Are: No History of Present Illness 51-year-old female with history of diabetes mellitus, COPD, previous CVA, presents with altered mental status and right sided weakness. Her symptoms were thought to be acute CVA presentation, and the decision was made to treat patient with TPA. Patient is admitted to ICU post TPA administration protocol. Review of Systems Constitutional: DENIES: Diaphoretic episodes, Fatigue, Fever, Weight gain, Weight loss, Chills, Dizziness, Change in appetite, Night Sweats Endocrine: DENIES: Abnorml menstrual pattern, Heat/cold intolerance, Polydipsia , Polyuria, Polyphagia Eyes: DENIES: Blurred vision, Diplopia, Eye inflammation, Eye pain, Vision loss , Photosensitivity, Double Vision Ears, nose, mouth, throat: DENIES: Tinnitus, Hearing loss, Vertigo, Nasal discharge, Oral lesions, Throat pain, Hoarseness, Ear Pain, Running Nose, Epistaxis, Sinus Pain, Toothache, Odynophagia Respiratory: DENIES: Apneas, Cough, Snoring, Wheezing, Hemoptysis, Sputum production, Shortness of breath Cardiovascular: DENIES: Chest pain, Palpitations, Syncope, Dyspnea on Exertion , PND, Lower Extremity Edema, Orthopnea, Claudication Gastrointestinal: DENIES: Abdominal pain, Black stools, Bloody stools, Constipation, Diarrhea, Nausea, Vomiting, Difficulty Swallowing, Anorexia Genitourinary: DENIES: Abnormal vaginal bleeding, Dysmenorrhea, Dyspareunia, Sexual dysfunction, Urinary frequency, Urinary incontinence, Urgency, Hematuria , Dysuria, Nocturia, Vaginal discharge Musculoskeletal: DENIES: Joint pain, Muscle aches, Stiffness, Joint Swelling, Back pain, Neck pain Integumentary: DENIES: Abnormal pigmentation, Pruritus, Rash, Nail changes, Breast masses, Breast skin changes, Nipple discharge Hematologic/lymphatic: DENIES: Bruising, Lymphadenopathy Immunologic/allergic: DENIES: Eczema, Urticaria Neurologic: COMPLAINS OF: Abnormal gait, Localized weakness, DENIES: Headache , Paresthesias, Seizures, Speech Problems, Tremor, Poor Balance Past Family Social History Allergies: Coded Allergies: Hydrocodone (Verified Allergy, Severe, tongue swelling, 10/01/06) Penicillin (Verified Allergy, Severe, HIVES, SWELLING, 10/01/06) Past Medical History Diabetes mellitus type 2 COPD Previous CVAs Reported Medications Reported Meds & Active Scripts Active Lantus Inj (Insulin Glargine) 1,000 Unit/10 Ml Vial 15 Units SQ HS 14 Days Acetaminophen Extra Strength (Acetaminophen) 500 Mg Tab 500 Mg PO Q6H PRN Reported Ambien (Zolpidem Tartrate) 10 Mg Tab 10 Mg PO HS PRN Lyrica (Pregabalin) 150 Mg Cap 150 Mg PO Q6HR Methadone (Methadone HCl) 5 Mg Tab 5 Mg PO Q6HR Active Ordered Medications Current Medications Medications (Trade) Dose Ordered Sig/Brenda Route PRN Reason Start Time Stop Time Status Last Admin Dose Admin Miscellaneous Information No Heparin, Warfarin, Aspir... UNSCH PRN XX SEE DOSE INSTRUCTIONS 07/11/16 17:30 07/12/16 17:29 Sodium Chloride (NS 1000 ml Inj) 1,000 ml @ 84 mls/hr [id number] IV 07/11/16 22:00 07/11/16 22:04 Sodium Chloride (NS Flush) 2 ml UNSCH PRN .XX FLUSH AFTER USING IV ACCESS 07/11/16 21:30 Sodium Chloride (NS Flush) 2 ml BID .XX 07/12/16 09:00 Acetaminophen (Tylenol) 650 mg Q6H PRN PO PAIN 1-10 AND/OR FEVER >101F 07/11/16 21:30 Famotidine (Pepcid Inj) 20 mg Q12HR IV PUSH 07/12/16 09:00 Ondansetron HCl (Zofran Inj) 4 mg Q6H PRN IV NAUSEA OR VOMITING 07/11/16 21:30 Metoclopramide HCl (Reglan Inj) 10 mg Q6H PRN IV SEVERE NAUSEA OR VOMITING 07/11/16 21:30 Docusate Sodium (Colace) 100 mg BID PO 07/12/16 09:00 Miscellaneous Information 1 [id number] XX 07/11/16 21:30 07/11/16 22:00 Chlorhexidine Gluconate (Chlorhexidine 2% Cloth) 3 pack Taper DAILY@04 TOP 07/12/16 04:00 07/08/17 03:59 07/12/16 01:19 Chlorhexidine Gluconate (Chlorhexidine 2% Cloth) 3 pack UNSCH PRN TOP HYGIENIC CARE 07/11/16 21:30 Methadone HCl (Dolophine) 5 mg Q6HR PO 07/12/16 00:00 07/12/16 00:36 Miscellaneous (Pill Splitter) 1 ea UNSCH PRN OTHER SEE LABEL COMMENTS 07/11/16 22:00 07/11/16 22:05 Family History Noncontributory Social History Positive for tobacco abuse negative for alcohol or illicit drugs Physical Exam Vital Signs Vital Signs Date Time Temp Pulse Resp B/P Pulse Ox O2 Delivery O2 Flow Rate FiO2 07/11/16 19:20 97 07/11/16 17:36 96 Nasal Cannula 21 Physical Exam GENERAL: Well-nourished, well-developed patient. SKIN: Warm and dry. HEAD: Normocephalic. EYES: No scleral icterus. No injection or drainage. NECK: Supple, trachea midline. No JVD or lymphadenopathy. CARDIOVASCULAR: Regular rate and rhythm without murmurs, gallops, or rubs. RESPIRATORY: Breath sounds equal bilaterally. No accessory muscle use. GASTROINTESTINAL: Abdomen soft, non-tender, nondistended. MUSCULOSKELETAL: No cyanosis, or edema. BACK: Nontender without obvious deformity. No CVA tenderness. EXTREMITIES: No clubbing cyanosis or edema nonfocal exam Laboratory Laboratory Tests Test 07/11/16 07/11/16 15:58 16:33 White Blood Count 10.5 Red Blood Count 5.47 Hemoglobin 16.1 Bedside Hemoglobin 15.3 Hematocrit 45.9 Bedside Hematocrit 45.0 Mean Corpuscular Volume 83.9 Mean Corpuscular Hemoglobin 29.4 Mean Corpuscular Hemoglobin 35.0 Concent Red Cell Distribution Width 13.1 Platelet Count 156 Mean Platelet Volume 8.8 Neutrophils (%) (Auto) 48.4 Lymphocytes (%) (Auto) 44.8 Monocytes (%) (Auto) 4.4 Eosinophils (%) (Auto) 1.5 Basophils (%) (Auto) 0.9 Neutrophils # (Auto) 5.1 Lymphocytes # (Auto) 4.7 Monocytes # (Auto) 0.5 Eosinophils # (Auto) 0.2 Basophils # (Auto) 0.1 CBC Comment DIFF FINAL Differential Comment Erythrocyte Sedimentation Rate 3 Prothrombin Time 11.1 Prothromb Time International 1.0 Ratio Activated Partial 26.0 Thromboplast Time Fibrinogen 237 Bedside Sodium 138 Bedside Potassium 4.1 Bedside Chloride 100 Bedside Blood Urea Nitrogen 6 Bedside Creatinine 0.5 Bedside Glucose 414 Aspartate Amino Transf 13 (AST/SGOT) Alanine Aminotransferase 28 (ALT/SGPT) Total Creatine Kinase 42 Troponin I LESS THAN 0.02 Triglycerides Level 260 Cholesterol Level 148 LDL Cholesterol 64 HDL Cholesterol 31.6 Cholesterol/HDL Ratio 4.68 Vitamin B12 Level 371 Free Thyroxine 1.63 Thyroid Stimulating Hormone 1.290 3rd Gen Human Chorionic Gonadotropin, LESS THAN 1 Quant Blood Type O POSITIVE Antibody Screen NEGATIVE Blood Bank Comment Blood Gas Puncture Site LT BRACHIAL Blood Gas Patient Temperature 98.6 Blood Gas HCO3 25 Blood Gas Base Excess 1.8 Blood Gas Oxygen Saturation 91 Arterial Blood pH 7.46 Arterial Blood Partial 36 Pressure CO2 Arterial Blood Partial 76 Pressure O2 Arterial Blood Oxygen Content 18.7 Arterial Blood 6.1 Carboxyhemoglobin Arterial Blood Methemoglobin 0.4 Blood Gas Hemoglobin 14.6 Oxygen Delivery Device RA Result Diagram: 07/11/16 1558 Imaging Last 24 hours Impressions Brain MRI 07/11/16 1722 Signed Impressions: Service Date/Time: Monday, July 11, 2016 21:42 - CONCLUSION: 1. No acute infarct or other acute intracranial abnormality. 2. Several small, chronic scattered foci of nonspecific but presumably ischemic demyelinization in the right frontal lobe. The 3. Sinus disease. Jesse Chaidez MD Neck CTA 07/11/16 1603 Signed Impressions: Service Date/Time: Monday, July 11, 2016 16:09 - CONCLUSION: No evidence of carotid stenosis Jesse Stanley MD Head CTA 07/11/16 1603 Signed Impressions: Service Date/Time: Monday, July 11, 2016 16:09 - CONCLUSION: 1. Negative examination. Goldy Cavazos MD Assessment and Plan Assessment and Plan Acute CVA - Status post TPA administration per neurology - CTA and MRI negative - PT and OT eval and treat - Management per neurology Diabetes mellitus type 2 - Insulin sliding scale COPD - No exacerbation - DuoNeb's when necessary DVT GI prophylaxis - Teds SCDs - Pepcid - No pharmacological prophylaxis due to TPN administration Critical Care: The total critical care time was 35 minutes. Time to perform other separately billable procedures was not included in the critical care time. Pankaj Wilkins MD July 11, 2016 22:01
[2016-07-11] MEDS: SODIUM CHLOR 0.9% 1000 ML INJ 1,000 ML IV SCH (22:04)
[2016-07-11] MEDS ORDERED: GADODIAMIDE PF 287 MG/ML 5 ML VIAL (for RAD MRI) IV ONE (22:17)
[2016-07-11] MEDS ORDERED: AMBI10TA PO (22:23)
[2016-07-11] MEDS ORDERED: LYRI150C PO (22:23)
--- NOTE | 2016-07-11 22:27 | RADRPT ---
EXAM DATE/TIME: 07/11/2016 21:42 [facility] COMPARISON: No previous studies available for comparison. INDICATIONS : CVA. Post TPA. CONTRAST: 18 cc Omniscan (gadodiamide) IV MEDICAL HISTORY : Chronic obstructive pulmonary disease. Carcinoma, breast. Carcinoma, ovarian. HTN. Diabetes. SURGICAL HISTORY : Fusion, cervical. Breast lumpectomy. Partial hysterectomy. ENCOUNTER: Subsequent ACUITY: 1 day PAIN SCORE: Nonresponsive. LOCATION: cranial TECHNIQUE: Multiplanar, multisequence MRI of the brain was performed both prior to and following the administrat ion of paramagnetic contrast. FINDINGS: CEREBRUM: The ventricles are normal for age. No evidence of midline shift, mass lesion, hemorrhage or acute in farction. No extraaxial fluid collections are seen. The pituitary gland and suprasellar cistern are normal in configuration. WHITE MATTER: Several sub-5 mm foci of flair sac no abnormality seen in the white matter of the right frontal lobe. POSTERIOR FOSSA: The cerebellum and brainstem are intact. The 4th ventricle is midline. The cerebellopontine angle is unremarkable. The cerebellar tonsils are normal in position. DIFFUSION IMAGING: No focal areas of restricted diffusion are seen. No evidence of acute infarction. EXTRACRANIAL: There is mucoperiosteal thickening of the ethmoid and sphenoid air cells. POST-CONTRAST: No abnormal areas of parenchymal or dural enhancement. No evidence of blood-brain barrier breakdown. CONCLUSION: 1. No acute infarct or other acute intracranial abnormality. 2. Several small, chronic scattered foci of nonspecific but presumably ischemic demyelinization in th e right frontal lobe. The 3. Sinus disease. Jesse Chaidez MD on July 11, 2016 at 22:22 Board Certified Radiologist. This report was verified electronically.
[2016-07-11 23:00] VITALS: PULSE 60
[2016-07-11 23:22] VITALS: O2SAT 94
[2016-07-11 23:45] VITALS: BP 162/91; PULSE 71; RESP 26; O2SAT 94
[2016-07-12] VITALS (29 sets, daily range): BP systolic 120–170; BP diastolic 55–85; PULSE 51–80; RESP 12–41; O2SAT 63–97
[2016-07-12] MEDS: METHADONE HCL 10 MG TAB PO SCH ×3 (00:36→11:25)
[2016-07-12] MEDS ORDERED: HYDROmorphone HCL PF 1 MG/ML VIAL IV ONE (04:00)
[2016-07-12] MEDS ORDERED: CHLORHEXIDINE GLUCONATE 2 % 1 PACK (2 CLOTHS) TOP SCH (04:00)
[2016-07-12 04:07] LABS: AUTOMATED NEUTROPHIL # 4.4 TH/MM3 (1.8-7.7); BASOPHIL # 0.1 TH/MM3 (0-0.2); BASOPHIL % 0.9 % (0.0-2.0); EOSINOPHIL # 0.2 TH/MM3 (0-0.4); HEMATOCRIT 40.8 % (35.0-46.0); HEMO FLAGS DIFF FINAL; LYMPH % 45.1 % (9.0-44.0); LYMPHOCYTE # 4.1 TH/MM3 (1.0-4.8); MEAN CELL VOLUME 83.3 FL (80.0-100.0); MEAN CORPUSCULAR HEMOGLOBIN 29.6 PG (27.0-34.0); MEAN CORPUSCULAR HGB CONC 35.5 % (32.0-36.0); MONO % 3.7 % (0.0-8.0); NEUT % 48.3 % (16.0-70.0); PLATELET COUNT 124 TH/MM3 (150-450); RED BLOOD COUNT 4.89 MIL/MM3 (4.00-5.30); WHITE BLOOD COUNT 9.1 TH/MM3 (4.0-11.0)
[2016-07-12 04:33] LABS: ANION GAP 7 MEQ/L (5-15); AST (GOT) 12 U/L (15-37); BICARBONATE 28.1 MEQ/L (21.0-32.0); BLOOD UREA NITROGEN 6 MG/DL (7-18); CHLORIDE 105 MEQ/L (98-107); GLOMERULAR FILTRATION RATE 174 ML/MIN (>89); MAGNESIUM 1.8 MG/DL (1.5-2.5); POTASSIUM 3.6 MEQ/L (3.5-5.1); SODIUM (NA) 140 MEQ/L (136-145)
[2016-07-12 04:36] LABS: ALKALINE PHOSPHATASE 88 U/L (45-117); ALT (GPT) 25 U/L (10-53); TOTAL BILIRUBIN ADULT 0.9 MG/DL (0.2-1.0)
[2016-07-12] MEDS ORDERED: FAMOTIDINE 20 MG/2 ML VIAL IV PUSH SCH (09:00)
[2016-07-12] MEDS ORDERED: DOCUSATE SODIUM 100 MG CAP PO SCH (09:00)
[2016-07-12] MEDS ORDERED: SODIUM CHLORIDE 0.9% FLUSH 10 ML FLUSH SCH (09:00)
[2016-07-12] MEDS: SODIUM CHLOR 0.9% 1000 ML INJ 1,000 ML IV SCH (10:18)
--- NOTE | 2016-07-12 10:22 | EKG ---
Date Performed: 07/11/2016 Time Performed: 17:02:25 PTAGE: 51 years EKG: Sinus rhythm NORMAL ECG PREVIOUS TRACING : 06/25/2016 08.35 DOCTOR: Lisbet Chávez Interpretating Date/Time 07/12/2016 10:20:15
--- NOTE | 2016-07-12 11:00 | RADRPT ---
EXAM DATE/TIME: 07/12/2016 10:36 [facility] COMPARISON: CT BRAIN W/O CONTRAST, July 11, 2016, 16:09. INDICATIONS : Right side weakness. RADIATION DOSE: 46.39 CTDIvol (mGy) MEDICAL HISTORY : Stroke. Carcinoma, breast. SURGICAL HISTORY : None. ENCOUNTER: Initial ACUITY: 1 day PAIN SCALE: 0/10 LOCATION: Bilateral cranial TECHNIQUE: Multiple contiguous axial images were obtained of the head. Using automated exposure control and adj ustment of the mA and/or kV according to patient size, radiation dose was kept as low as reasonably a chievable to obtain optimal diagnostic quality images. FINDINGS: CEREBRUM: The ventricles are normal for age. No evidence of midline shift, mass lesion, hemorrhage or acute in farction. No extra-axial fluid collections are seen. POSTERIOR FOSSA: The cerebellum and brainstem are intact. The 4th ventricle is midline. The cerebellopontine angle i s unremarkable. EXTRACRANIAL: The visualized portion of the orbits is intact. SKULL: The calvaria is intact. No evidence of skull fracture. CONCLUSION: Stable appearance with no evidence of hemorrhage or mass effect. Jef Beyer MD on July 12, 2016 at 10:58 Board Certified Radiologist. This report was verified electronically.
--- NOTE | 2016-07-12 11:18 | HHI.PR ---
Subjective Remarks sb 50s no afib Objective Vital Signs Date Time Temp Pulse Resp B/P Pulse Ox O2 Delivery O2 Flow Rate FiO2 07/12/16 07:00 60 16 91 07/12/16 07:00 91 21 07/12/16 06:45 70 19 92 07/12/16 06:00 53 07/12/16 06:00 60 18 96 07/12/16 05:17 55 15 170/79 93 07/12/16 05:00 57 17 91 07/12/16 04:45 58 20 91 07/12/16 04:45 61 20 91 07/12/16 04:30 61 07/12/16 04:28 60 07/12/16 04:15 61 20 91 07/12/16 04:15 61 07/12/16 04:00 59 07/12/16 04:00 53 07/12/16 03:45 57 16 92 07/12/16 03:00 51 12 143/71 94 07/12/16 02:45 59 19 126/55 96 07/12/16 02:36 70 25 143/71 96 07/12/16 02:30 67 29 97 07/12/16 02:15 71 37 170/79 96 07/12/16 02:15 71 37 170/79 96 07/12/16 02:00 58 19 158/82 95 07/12/16 02:00 53 07/12/16 02:00 58 19 158/82 95 07/12/16 02:00 58 19 158/82 95 07/12/16 01:55 22 07/12/16 01:45 53 21 132/61 94 07/12/16 01:45 53 21 132/61 94 07/12/16 01:31 62 21 126/59 95 07/12/16 01:30 55 19 95 07/12/16 01:15 56 23 94 07/12/16 01:15 56 23 120/56 94 07/12/16 01:01 52 21 147/67 95 07/12/16 01:01 52 21 147/67 95 07/12/16 01:00 52 20 95 07/12/16 01:00 52 20 95 07/12/16 00:46 63 41 146/85 07/12/16 00:45 55 20 63 07/12/16 00:30 80 30 120/66 07/12/16 00:16 59 26 126/64 07/12/16 00:16 59 26 126/64 07/12/16 00:15 54 24 07/12/16 00:00 53 22 150/75 96 07/12/16 00:00 53 22 150/75 96 07/12/16 00:00 53 07/11/16 23:45 71 26 162/91 94 07/11/16 23:22 94 07/11/16 23:00 60 07/11/16 22:00 59 20 148/91 95 07/11/16 22:00 98.1 60 18 134/88 97 07/11/16 19:20 97 07/11/16 17:36 96 Nasal Cannula 21 I/O 07/11/16 07/11/16 07/11/16 07/12/16 07/12/16 07/12/16 07:00 15:00 23:00 07:00 15:00 23:00 Intake Total 513 ml Output Total 200 ml Balance 313 ml Intake Oral 60 ml IV Total 453 ml Output Urine Total 200 ml Result Diagram: 07/12/16 0331 07/12/16 0331 Other Results mri no acute cva labs ok ldl nl Objective Remarks awake speech nl poor effort bilat but still some weak r tricep+ lifts ble off bed well now Assessment and Plan Assessment and Plan imp was crying this am have psych see no cva check hyper coag screen ldl ok asa oob eat PT ok to tele floor check eeg c spine mri Kevin Christianson MD July 12, 2016 11:18
--- NOTE | 2016-07-12 14:58 | EC ---
Study Study Date:07/12/2016 STUDY CONCLUSIONS SUMMARY - Left ventricle: The cavity size was normal. Wall thickness was normal. Systolic function was normal. The estimated ejection fraction was in the range of 55% to 60%. Wall motion was normal; there were no regional wall motion abnormalities. Doppler parameters are consistent with abnormal left ventricular relaxation (grade 1 diastolic dysfunction). - Aortic valve: Valve area: 1.64cm^2(VTI). Valve area: 2.11cm^2 (Vmax). If LV function is below 40, please consider prescribing an ACEI or ARB or document rationale for non-use. PROCEDURE DATA STUDY STATUS: Elective. Procedure: Transthoracic echocardiography. Image quality was good. Scanning was performed from the parasternal, apical, and subcostal acoustic windows. Study completion: The patient tolerated the procedure well. Transthoracic echocardiography. M-mode, complete 2D, complete spectral Doppler, and color Doppler. Height: Height: 62in. Weight: Weight: 200.6lb. Body mass index: BMI: 36.8kg/m^2. Body surface area: BSA: 1.92m^2. Patient status: Inpatient. CARDIAC ANATOMY LEFT VENTRICLE: The cavity size was normal. Wall thickness was normal. Systolic function was normal. The estimated ejection fraction was in the range of 55% to 60%. Wall motion was normal; there were no regional wall motion abnormalities. Doppler parameters are consistent with abnormal left ventricular relaxation (grade 1 diastolic dysfunction). AORTIC VALVE: Trileaflet; normal thickness leaflets. Doppler: Transvalvular velocity was within the normal range. There was no stenosis. No regurgitation. Valve area: 1.64cm^2(VTI). Indexed valve area: 0.85cm^2/m^2 (VTI). Valve area: 2.11cm^2 (Vmax). Indexed valve area: 1.1cm^2/m^2 (Vmax). Mean gradient: 4mm Hg (S). AORTA: Aortic root: The aortic root was normal in size. MITRAL VALVE: Structurally normal valve. Doppler: Transvalvular velocity was within the normal range. There was no evidence for stenosis. Trace to mild regurgitation. LEFT ATRIUM: The atrium was normal in size. RIGHT VENTRICLE: The cavity size was normal. Wall thickness was normal. PULMONIC VALVE: Doppler: Transvalvular velocity was within the normal range. There was no evidence for stenosis. No regurgitation. TRICUSPID VALVE: Structurally normal valve. Doppler: Transvalvular velocity was within the normal range. Trace regurgitation. PULMONARY ARTERY: The main pulmonary artery was normal-sized. Systolic pressure was within the normal range. RIGHT ATRIUM: The atrium was normal in size. PERICARDIUM: There was no pericardial effusion. SYSTEMIC VEINS: Inferior vena cava: The vessel was normal in size. Patient weight: 200.6lb _Ejection fraction:_ 65-75% _Fractional shortening:_ 32% up to 5Kg 5-11.5Kg 11.6-22.9Kg 23-45Kg 45-57Kg Aortic Root 7-13 <17 13-22 17-27 17-27 LA diam 6-13 <23 24-38 33-47 37-40 RVID 10-17 7-15 7-15 7-18 8-17 LVIDd 12-22 <32 24-38 33-47 37-40 LVPW 2-4 3-6 5-7 6-8 7-8 IVS 2-4 3-6 5-7 6-8 7-8 BASIC MEASUREMENTS ADULT NORMAL Left ventricle LV internal dimension, ED, chordal *42.9 mm 43-52 level, PLAX LV internal dimension, ES, chordal 32.8 mm 23-38 level, PLAX Fractional shortening, chordal level, *24 % >29 PLAX LV posterior wall thickness, ED 9.6 mm IVS/LVPW ratio, ED 1.02 <1.3 Ventricular septum Septal thickness, ED 9.82 mm Aortic valve Leaflet separation 22 mm 15-26 Aorta Root diameter, ED 27 mm Left atrium Anterior-posterior dimension 35 mm Anterior-posterior dimension index 1.82 cm/m^2 <2.2 BASIC MEASUREMENTS ADULT NORMAL Aortic valve Leaflet separation 22 mm 15-26 DOPPLER MEASUREMENTS ADULT NORMAL Aortic valve Peak velocity, S 145 cm/s Mean velocity, S 98.7 cm/s VTI, S 30.9 cm Mean gradient, S 4 mm Hg Valve area, VTI 1.64 cm^2 Valve area index, VTI 0.85 cm^2/m^2 Valve area, Vmax 2.11 cm^2 Valve area index, Vmax 1.1 cm^2/m^2 Mitral valve Peak E-wave velocity 64.7 cm/s Peak A-wave velocity 75.5 cm/s Deceleration time 180 ms 150-230 Peak E/A ratio 0.9 Pulmonic valve Peak velocity, S 63.9 cm/s LEGEND: Mean values are shown as u=mean value. Asterisk (*) malave values outside specified normal range. Prepared and signed by Lisbet Chávez [id number]
--- NOTE | 2016-07-12 15:54 | HHI.PR ---
Subjective Remarks asking for pain meds- states on Lyrica for neuropathy denies any headache, nausea or vomiting, no foal weakness Objective Vitals Vital Signs Date Time Temp Pulse Resp B/P Pulse Ox O2 Delivery O2 Flow Rate FiO2 07/12/16 07:00 60 16 91 07/12/16 07:00 91 21 07/12/16 06:45 70 19 92 07/12/16 06:00 53 07/12/16 06:00 60 18 96 07/12/16 05:17 55 15 170/79 93 07/12/16 05:00 57 17 91 07/12/16 04:45 58 20 91 07/12/16 04:45 61 20 91 07/12/16 04:30 61 07/12/16 04:28 60 07/12/16 04:15 61 20 91 07/12/16 04:15 61 07/12/16 04:00 59 07/12/16 04:00 53 07/12/16 03:45 57 16 92 07/12/16 03:00 51 12 143/71 94 07/12/16 02:45 59 19 126/55 96 07/12/16 02:36 70 25 143/71 96 07/12/16 02:30 67 29 97 07/12/16 02:15 71 37 170/79 96 07/12/16 02:15 71 37 170/79 96 07/12/16 02:00 58 19 158/82 95 07/12/16 02:00 53 07/12/16 02:00 58 19 158/82 95 07/12/16 02:00 58 19 158/82 95 07/12/16 01:55 22 07/12/16 01:45 53 21 132/61 94 07/12/16 01:45 53 21 132/61 94 07/12/16 01:31 62 21 126/59 95 07/12/16 01:30 55 19 95 07/12/16 01:15 56 23 94 07/12/16 01:15 56 23 120/56 94 07/12/16 01:01 52 21 147/67 95 07/12/16 01:01 52 21 147/67 95 07/12/16 01:00 52 20 95 07/12/16 01:00 52 20 95 07/12/16 00:46 63 41 146/85 07/12/16 00:45 55 20 63 07/12/16 00:30 80 30 120/66 07/12/16 00:16 59 26 126/64 07/12/16 00:16 59 26 126/64 07/12/16 00:15 54 24 07/12/16 00:00 53 22 150/75 96 07/12/16 00:00 53 22 150/75 96 07/12/16 00:00 53 07/11/16 23:45 71 26 162/91 94 07/11/16 23:22 94 07/11/16 23:00 60 07/11/16 22:00 59 20 148/91 95 07/11/16 22:00 98.1 60 18 134/88 97 07/11/16 19:20 97 07/11/16 17:36 96 Nasal Cannula 21 I/O 07/11/16 07/11/16 07/11/16 07/12/16 07/12/16 07/12/16 07:00 15:00 23:00 07:00 15:00 23:00 Intake Total 513 ml Output Total 200 ml Balance 313 ml Intake Oral 60 ml IV Total 453 ml Output Urine Total 200 ml Result Diagram: 07/12/16 0331 07/12/16 0331 Imaging Last Impressions Head CT 07/12/16 0000 Signed Impressions: Service Date/Time: Tuesday, July 12, 2016 10:36 - CONCLUSION: Stable appearance with no evidence of hemorrhage or mass effect. Jef Beyer MD Brain MRI 07/11/16 1722 Signed Impressions: Service Date/Time: Monday, July 11, 2016 21:42 - CONCLUSION: 1. No acute infarct or other acute intracranial abnormality. 2. Several small, chronic scattered foci of nonspecific but presumably ischemic demyelinization in the right frontal lobe. The 3. Sinus disease. Jesse Chaidez MD Neck CTA 07/11/16 1603 Signed Impressions: Service Date/Time: Monday, July 11, 2016 16:09 - CONCLUSION: No evidence of carotid stenosis Jesse Stanley MD Head CTA 07/11/16 1603 Signed Impressions: Service Date/Time: Monday, July 11, 2016 16:09 - CONCLUSION: 1. Negative examination. Goldy Cavazos MD Objective Remarks awake and alert, NAD anicteric, tongue deviated to the left no nuchal rigidity lungs clear regular rhythm abdomens soft nontender extremities no edema, strength equal gait steady Urinary Catheter: Yes Assessment to: Remove Date of Removal: July 12, 2016 A/P Assessment and Plan 51 years old female admitted for Acute CVA - Status post TPA administration per neurology - CTA and MRI negative - PT and OT eval and treat -- sen by Neurology- no CVA- ordered for an EEG Diabetes mellitus type 2 with neuropathy - Insulin sliding scale. states good hypoglycemic awareness - counselled - discussed with her goals - we will start her back on her Lyrica - A1C pending chronic pain -continue on Her home Methadone and Lyrica COPD - No exacerbation - DuoNeb's when necessary DVT GI prophylaxis - Teds SCDs - Pepcid - No pharmacological prophylaxis due to TPA administration Psychiatry consulted- patient wanting to leave states she ff up with a PCP here - urgent care clinic Increase activity Mickey Barbosa MD July 12, 2016 15:54
--- NOTE | 2016-07-12 16:27 | PD.CONS ---
Provisional Diagnosis Admission Date July 11, 2016 at 17:38 [place] I. 1. No diagnosis on [place] I [place] II. Deferred History of Present Illness Service Psychiatry Consult Requested By Dr. Christianson Reason for Consult "depression? malingering?" Primary Care Physician No Primary Care Physician HPI Ms. Gonsalves is a 51-year-old female with no reported past psychiatric history who presented to the emergency department with altered mental status and right-sided weakness. She was admitted to the [facility] for further evaluation and management of this problem. I see that Dr. Christianson noted the patient was crying this morning and recommended a psychiatric evaluation. Reviewing the electronic medical record, I see no prior psychiatric contact within our system. Patient seen and examined. Chart reviewed. Case discussed with nurse who reports that the patient has been somewhat irritable and angry. Case also discussed with Dr. Barbosa, who is attending the patient at this time. She informs me that the patient is requesting to leave AMA and asks that I modify the reason for consultation to include capacity assessment for leaving AMA. On my examination today, the patient is initially upset. She expresses frustration at having to wait to be taken to the bathroom. She does indeed say that she wishes to leave the hospital and understands that she would be leaving AGAINST MEDICAL ADVICE. She verbalizes a consistent choice to leave and has a reasonable understanding of the risks of this choice. She denies any issues with low mood or elevated mood. She denies any suicidal or homicidal ideation, intent or plan. No audiovisual hallucinations. No evident delusions. The remainder of the psychiatric ROS is negative. Past psychiatric history: Patient denies any history of psychiatric diagnosis. She denies any history of inpatient or outpatient psychiatric treatment. She denies any history of suicide attempts. Family history: Patient denies any family history of mental illness. Chemical dependency history: The patient denies any abuse of drugs or alcohol. Review of Systems ROS Limitations: Uncooperative Past Family Social History Coded Allergies: Hydrocodone (Verified Allergy, Severe, tongue swelling, 10/01/06) Penicillin (Verified Allergy, Severe, HIVES, SWELLING, 10/01/06) Past Medical History See EMR Active Scripts Insulin Glargine Inj (Lantus Inj)1,000 Unit/10 Ml Vial15 Units SQ HS 14 Days Ref 0 Prov:Jenny Greenwood DO 06/25/16 Acetaminophen (Acetaminophen Extra Strength)500 Mg [id number] Mg PO Q6H PRN (PAIN SCALE 1 TO 4) #20 TAB Ref 0 Prov:Jenny Greenwood DO 06/25/16 Reported Medications Zolpidem (Ambien)10 Mg Tab10 Mg PO HS PRN (INSOMNIA) Ref 0 07/11/16 Pregabalin (Lyrica)150 Mg [id number] Mg PO Q6HR #90 CAP Ref 0 07/11/16 Methadone 5 Mg Tab5 Mg PO Q6HR 07/11/16 Current Medications Medications (Trade) Dose Ordered Sig/Brenda Route Start Time Stop Time Status Last Admin Miscellaneous Information No Heparin, Warfarin, Aspir... UNSCH PRN XX 07/11/16 17:30 07/12/16 17:29 (NS 1000 ml Inj) 1,000 ml @ 84 mls/hr [id number] IV 07/11/16 22:00 07/12/16 10:18 (NS Flush) 2 ml UNSCH PRN .XX 07/11/16 21:30 (NS Flush) 2 ml BID .XX 07/12/16 09:00 (Tylenol) 650 mg Q6H PRN PO 07/11/16 21:30 (Pepcid Inj) 20 mg Q12HR IV PUSH 07/12/16 09:00 07/12/16 10:17 (Zofran Inj) 4 mg Q6H PRN IV 07/11/16 21:30 (Reglan Inj) 10 mg Q6H PRN IV 07/11/16 21:30 (Colace) 100 mg BID PO 07/12/16 09:00 07/12/16 10:17 Miscellaneous Information 1 Q361D XX 07/11/16 21:30 07/11/16 22:00 (Chlorhexidine 2% Cloth) 3 pack Taper DAILY@04 TOP 07/12/16 04:00 07/08/17 03:59 07/12/16 01:19 (Chlorhexidine 2% Cloth) 3 pack UNSCH PRN TOP 07/11/16 21:30 (Dolophine) 5 mg Q6HR PO 07/12/16 00:00 07/12/16 11:25 (Pill Splitter) 1 ea UNSCH PRN OTHER 07/11/16 22:00 5/5/17 22:05 (Ecotrin Ec) 81 mg DAILY PO 07/12/16 20:00 Family History See above Social History Patient is . She has a daughter. No reported access to guns/firearms. Physical Exam Physical examination completed by primary team. On my examination today, patient appears to be in no acute physical distress. Laboratories and vital signs reviewed: Vital Signs Vital Signs Date Time Temp Pulse Resp B/P Pulse Ox O2 Delivery O2 Flow Rate FiO2 07/12/16 07:00 60 16 91 07/12/16 07:00 21 07/12/16 05:17 170/79 07/11/16 22:00 98.1 07/11/16 17:36 Nasal Cannula Lab Results Item Value Date Time White Blood Count 9.1 TH/MM3 07/12/16 0331 Hemoglobin 14.5 GM/DL 07/12/16 0331 Platelet Count 124 TH/MM3 L 07/12/16 0331 Sodium Level 140 MEQ/L 07/12/16 0331 Potassium Level 3.6 MEQ/L 07/12/16 0331 Chloride Level 105 MEQ/L 07/12/16 0331 Carbon Dioxide Level 28.1 MEQ/L 07/12/16 0331 Blood Urea Nitrogen 6 MG/DL L 07/12/16 0331 Creatinine 0.39 MG/DL L 07/12/16 0331 Aspartate Amino Transf (AST/SGOT) 12 U/L L 07/12/16 0331 Alanine Aminotransferase (ALT/SGPT) 25 U/L 07/12/16 0331 Alkaline Phosphatase 88 U/L 07/12/16 0331 Free Thyroxine 1.63 NG/DL H 07/11/16 1558 Thyroid Stimulating Hormone 3rd Gen 1.290 uIU/ML 07/11/16 1558 Human Chorionic Gonadotropin, Quant LESS THAN 1 MIU/ML 07/11/16 1558 Mental Status Examination Patient is casually dressed. She is well groomed. She is awake and alert and oriented 3. Her registration is 3 out of 3 in her recalls 1 out of 3 at 5 minutes. She is able to spell the word world forward and backward. She can name the last 2 presidents. She is able to name 2 items and repeat a phrase. No abnormal motor movements noted. Speech is initially somewhat loud and angry but the patient does subsequently calmed down and is able to speak at a normal volume. Language and fund of knowledge seem average. Mood is somewhat dysphoric but not terribly depressed. Affect restricted. Thought process linear. No loosening of associations. No evident delusions. Denies audiovisual hallucinations. Denies suicidal or homicidal ideation. Insight and judgment are perhaps fair. Assessment & Plan Problem List: (1) Encounter for psychiatric assessment ICD Code: Z76.89 Assessment & Plan This is a 51-year-old female with psychiatric history as detailed above presently admitted to the medical floor for evaluation of AMS and right- sided weakness. Consult initially was for possible depression, possible malingering but has been modified to include capacity assessment to leave AGAINST MEDICAL ADVICE. I find the patient to be clear thinking and there is no evidence of delirium or significant neurocognitive disorder. There is no evidence of any unstable mood, anxiety or psychotic disorder in this patient at this time. She denies suicidal or homicidal ideation. She appears to be attending to her basic needs. She verbalizes a consistent choice to leave the hospital and seems to understand the consequences of this decision. Patient is capacitated to decide to leave AGAINST MEDICAL ADVICE. She does not meet [place] act criteria nor does she meet criteria for inpatient psychiatric hospitalization at this time. She agrees to follow-up on an outpatient psychiatric basis if she deems necessary. I counseled the patient regarding warning signs for need to return to the psychiatric emergency room as part of the general safety plan. Thank you very much for this consultation. Case discussed with Dr. Barbosa and RN. Discharge Planning Per Primary team. Request HC Surrog/Guard Advoc?: No Kevin Solomon MD July 12, 2016 16:27
[2016-07-12] MEDS ORDERED: ASPIRIN EC 81 MG TABEC PO SCH (20:00)
--- NOTE | 2016-07-13 08:57 | MG ---
cc: MELY VIGIL Sex: [id number] HISTORY: 51-year-old, right-sided weakness, stuttering. MEDICATIONS: Dilaudid. Methadone DESCRIPTION: Diffuse 7 hertz slowing is seen, at times some bifrontal 3.5 to 4 hertz slowing is noted. The patient falls asleep with some theta and delta slowing bitemporally and occasional vertex sharp waves. Photic stimulation is performed without significant posterior driving. No hemisphere asymmetries are noted. The patient is noted be snoring. IMPRESSION: This appears to be a normal sleep variant EEG with stage II sleep, or there is some sharply contoured bitemporal waves. They appear to be within normal for stage II sleep. Clinical correlation is needed. MD MARIA DEL ROSARIO Sierra/GAMALIEL 8:17 AM :51 AM
[2016-07-14 14:10] LABS: RAPID PLASMA REAGIN SCREEN NON-REACTIVE (NON-REACTVE)
[2016-07-14 14:46] LABS: ANA SCREEN NEG (NEG)
[2016-07-16 19:52] LABS: THROMBIN TIME FOR LA ND sec (13-19)
[2016-07-18 08:22] LABS: STAT NO
== END 2016-07-12 17:10 | disposition left against medical advice (07) | DRG 62 ==
LOC: NEPC 15:50 → NEDA 17:38 → HIMN 22:15
PROVIDERS: ADMIT Internal Medicine; ATTEND Internal Medicine
DX: I63.9 Cerebral infarction, unspecified (principal); G81.91 Hemiplegia, unspecified affecting right dominant side; E11.40 Type 2 diabetes mellitus with diabetic neuropathy, unspecified; F17.210 Nicotine dependence, cigarettes, uncomplicated; E11.65 Type 2 diabetes mellitus with hyperglycemia; J44.9 Chronic obstructive pulmonary disease, unspecified; Z79.4 Long term (current) use of insulin; R29.706 NIHSS score 6
CPT/HCPCS: 36600; 51702; 70450; 70496; 70498; 70553; 80053; 80061; 81240; 81241; 82435; 82550; 82565; 82607; 82746; 82805; 82947; 82948; 83735; 83921; 84100; 84132; 84295; 84425; 84439; 84443; 84450; 84460; 84484; 84520; 84702; 85025; 85240; 85300; 85303; 85306; 85384; 85610; 85613; 85652; 85730; 86038; 86147; 86592; 86850; 86900; 86901; 87641; 93005; 93306; 95819; 96374; A9579; J1170; J1815; J2997; J7030; Q9967